=== PATIENT | female | born 1935 | race African-American/Black ===

== ENCOUNTER 2022-01-08 15:16 | Emergency (ER) | payer MEDICARE, OTHER ==
[~2022-01-08] VITALS: Ht 165.1 cm; Wt 91.0 kg
[2022-01-08] MEDS ORDERED: SODIUM CHLORIDE 0.9% 500 ML IV NR (16:15)
[2022-01-08 16:19] LABS: BASOPHILS % 0.5 % (0.0-2.0); EOSINOPHILS % 1.7 % (0.0-5.0); HEMOGLOBIN. 11.7 g/dL (12.0-16.0); LYMPHOCYTES % 27.7 % (20.0-50.0); MEAN CORPUSCULAR HEMOGLOBIN 28.8 pg (28.0-32.0); MEAN CORPUSCULAR VOLUME 86.3 fL (81.0-99.0); MEAN PLATELET VOLUME 9.1 fl (7.4-10.4); MONOCYTES % 5.8 % (2.0-8.0); NEUTROPHILS % 64.3 % (40.0-76.0); PLATELET 203 x1000/uL (130-400); RED BLOOD CELL COUNT 4.06 mill/uL (4.2-5.4); RED CELL DISTRIBUTION WIDTH 13.3 % (11.6-14.6)
[2022-01-08 16:26] LABS: CHLORIDE 105 mEq/L (98-107)
[2022-01-08 16:37] VITALS: BP 127/52
== END 2022-01-09 01:01 | disposition short-term general hospital (02) ==
LOC: ER 15:16 → CANBEDREQ 01-09 07:22
DX: R55 Syncope and collapse (principal); R42 Dizziness and giddiness; E78.00 Pure hypercholesterolemia, unspecified; I10 Essential (primary) hypertension; Z86.73 Personal history of transient ischemic attack (TIA), and cerebral infarction without residual deficits
CPT/HCPCS: 36415; 71045; 80053; 83605; 83880; 84145; 84484; 85025; 99284